=== PATIENT | female | born 1950 | race Caucasian/White ===

== ENCOUNTER → 2021-05-11 11:16 | Outpatient (CLI) | payer MEDICARE, OTHER, SELFPAY ==
[2021-05-11 11:53] LABS: Add Manual Diff / Slide Review NO; Basophils Absolute Auto 0 /uL (0-100); Basophils Percent Auto 0.7 % (0-2); Eosinophils Absolute Auto 400 /uL (0-450); Eosinophils Percent Auto 5.1 % (2-4); Hematocrit 43.3 % (36-46); Lymphocytes Absolute Auto 2400 /uL (1100-4500); Lymphocytes Percent Auto 33.9 % (25-40); Mean Corpuscular HGB Conc 34.6 % (30-36); Mean Corpuscular Volume 92.5 fL (80-100); Monocytes Absolute Auto 500 /uL (0-900); Monocytes Percent Auto 7.7 % (3-14); Neutrophils Absolute Auto 3800 /uL (1500-7000); Neutrophils Percent Auto 52.6 % (50-75); Platelet Count 127 X10^3/uL (150-400); Red Blood Cell Count 4.68 X10^6/uL (4.0-5.2); Red Cell Distribution Width 12.5 % (11.6-14.8); White Blood Cell Count 7.1 X10^3/uL (4.5-11.0)
[2021-05-11 12:16] LABS: Alanine Aminotransferase 37 IU/L (<35); Albumin 4.3 g/dL (3.5-5.0); Albumin Globulin Ratio 1.7 (1.0-2.8); Alkaline Phosphatase 57 U/L (38-126); Aspartate Aminotransferase 39 IU/L (14-36); BUN Creatinine Ratio 20.9 (6-22); Bilirubin Total 0.6 mg/dL (0.2-1.3); Blood Urea Nitrogen 19 mg/dL (7-17); Carbon Dioxide 27 mmol/L (22-32); Chloride 105 mmol/L (98-107); Estimated Glomerular Filt Rate > 60.0 mL/min (>60); Globulin 2.6 g/dL (1.7-4.1); Glucose 98 mg/dL (80-110); HEMOLYSIS < 15 (0-50); Potassium 4.4 mmol/L (3.4-5.1); Sodium 139 mmol/L (137-145); Total Protein 6.9 g/dL (6.3-8.2)
== END ==
PROVIDERS: Referring Provider Registered Nurse; Visit Provider Registered Nurse
DX: J98.8 Other specified respiratory disorders (principal)
CPT/HCPCS: 36415; 80053; 85025

== ENCOUNTER → 2021-05-24 18:11 | Outpatient (CLI) | payer MEDICARE, OTHER, SELFPAY ==
--- NOTE | 2021-05-24 18:14 | DI.MRI.S_ITS ---
PROCEDURE: MR SHOULDER LT WO CON INDICATIONS: Tingling, pain right left shoulder TECHNIQUE: Noncontrast oblique coronal T2 fast spin echo with fat saturation, oblique sagittal T1 spin echo and T2 fast spin echo with fat saturation, axial T1 spin echo and T2 fast spin echo with fat saturation through the shoulder. COMPARISON: None. FINDINGS: Image quality: Excellent. Rotator cuff: There is mild tendinopathy of the supraspinatus and infraspinatus with mild superficial fraying in the distal supraspinatus at its insertion as well as minimal intrasubstance partial tearing along the bursal sided fibers of the supraspinatus distally. No high-grade or full-thickness rotator cuff tear. The subscapularis also demonstrates mild tendinopathy with minimal interstitial partial tearing distally at its insertion. Teres minor appears intact. Sagittal images demonstrate no fatty muscle atrophy. Bones and bursae: No bone marrow contusions or fractures. There is moderate acromioclavicular joint degeneration. The acromion demonstrates mild inferior spurring laterally, without an os acromiale. A small amount of subacromial/subdeltoid bursal fluid is present. There is mild glenohumeral joint degeneration. Capsule and soft tissues: There is mild degenerative tearing in the posterosuperior labrum. Mild intermediate signal and attenuation is demonstrated at the glenoid insertion of the anterior inferior glenohumeral ligament which may represent degeneration or sequelae of a mild sprain. The long head of the biceps tendon demonstrates normal location and morphology. IMPRESSION: 1. Mild tendinopathy of the distal supraspinatus with mild bursal sided and interstitial partial tearing as described. Mild tendinopathy in the distal subscapularis with mild interstitial partial tearing distally also demonstrated. No high-grade or full-thickness rotator cuff tear. 2. Moderate acromioclavicular joint degeneration and mild inferior spurring along the lateral acromion. A small amount of subacromial/subdeltoid bursal fluid is present. 3. Mild degenerative tearing in the posterosuperior labrum. Dictated by: Kameron Mahmood M.D. on 05/25/2021 at 13:58 Approved by: Kameron Mahmood M.D. on 05/25/2021 at 14:23
== END ==
PROVIDERS: PCP Registered Nurse; Referring Provider Registered Nurse; Visit Provider Registered Nurse
DX: M75.112 Incomplete rotator cuff tear or rupture of left shoulder, not specified as traumatic (principal); M19.012 Primary osteoarthritis, left shoulder; S43.432A Superior glenoid labrum lesion of left shoulder, initial encounter; R20.2 Paresthesia of skin; R20.0 Anesthesia of skin
CPT/HCPCS: 73221

== ENCOUNTER → 2021-07-27 15:11 | Outpatient (ROUT) | payer MEDICARE, OTHER, SELFPAY ==
[2021-07-27 15:59] LABS: COVID19 -Nasal RAPID Negative (Negative)
== END ==
PROVIDERS: PCP Registered Nurse; Visit Provider Physician Assistant
DX: Z20.822 Contact with and (suspected) exposure to COVID-19 (principal)
CPT/HCPCS: 87635

== ENCOUNTER → 2021-08-03 09:35 | Outpatient (CLI) | payer MEDICARE, OTHER, SELFPAY ==
[2021-08-03 11:01] LABS: Add Manual Diff / Slide Review NO; Basophils Absolute Auto 100 /uL (0-100); Basophils Percent Auto 0.7 % (0-2); Eosinophils Absolute Auto 400 /uL (0-450); Eosinophils Percent Auto 4.8 % (2-4); Hematocrit 44.9 % (36-46); Hemoglobin 15.2 g/dL (12.0-16.0); Lymphocytes Absolute Auto 3000 /uL (1100-4500); Lymphocytes Percent Auto 37.9 % (25-40); Mean Corpuscular HGB Conc 33.7 % (30-36); Mean Corpuscular Hemoglobin 31.3 PG (26-34); Mean Corpuscular Volume 92.9 fL (80-100); Monocytes Absolute Auto 600 /uL (0-900); Monocytes Percent Auto 7.7 % (3-14); Neutrophils Absolute Auto 3900 /uL (1500-7000); Neutrophils Percent Auto 48.9 % (50-75); Platelet Count 175 X10^3/uL (150-400); Red Blood Cell Count 4.84 X10^6/uL (4.0-5.2); Red Cell Distribution Width 12.9 % (11.6-14.8)
[2021-08-03 12:13] LABS: Alanine Aminotransferase 36 IU/L (<35); Albumin 4.2 g/dL (3.5-5.0); Albumin Globulin Ratio 1.7 (1.0-2.8); Alkaline Phosphatase 54 U/L (38-126); Aspartate Aminotransferase 34 IU/L (14-36); BUN Creatinine Ratio 23.7 (6-22); Bilirubin Total 0.7 mg/dL (0.2-1.3); Blood Urea Nitrogen 23 mg/dL (7-17); Calcium 9.8 mg/dL (8.4-10.2); Carbon Dioxide 26 mmol/L (22-32); Chloride 102 mmol/L (98-107); Estimated Glomerular Filt Rate 56.6 mL/min (>60); Globulin 2.5 g/dL (1.7-4.1); Glucose 115 mg/dL (80-110); HEMOLYSIS < 15 (0-50); Potassium 4.3 mmol/L (3.4-5.1); Sodium 138 mmol/L (137-145); Total Protein 6.7 g/dL (6.3-8.2)
[2021-08-03 12:33] LABS: TSH w/ Reflex to FT4 2.12 uIU/mL (0.47-4.68)
== END ==
PROVIDERS: PCP Physician Assistant; Referring Provider Physician Assistant; Visit Provider Physician Assistant
DX: E03.9 Hypothyroidism, unspecified (principal)
CPT/HCPCS: 36415; 80053; 84443; 85025

== ENCOUNTER → 2021-10-11 06:53 | Outpatient (CLI) | payer MEDICARE, OTHER, SELFPAY ==
[2021-10-11 10:34] LABS: Alanine Aminotransferase 36 IU/L (<35); Albumin 4.4 g/dL (3.5-5.0); Albumin Globulin Ratio 1.8 (1.0-2.8); Alkaline Phosphatase 47 U/L (38-126); Aspartate Aminotransferase 41 IU/L (14-36); BUN Creatinine Ratio 13.3 (6-22); Bilirubin Total 0.8 mg/dL (0.2-1.3); Blood Urea Nitrogen 12 mg/dL (7-17); Calcium 9.8 mg/dL (8.4-10.2); Carbon Dioxide 28 mmol/L (22-32); Chloride 105 mmol/L (98-107); Estimated Glomerular Filt Rate > 60.0 mL/min (>60); Globulin 2.4 g/dL (1.7-4.1); Glucose 107 mg/dL (80-110); HEMOLYSIS < 15 (0-50); Potassium 4.3 mmol/L (3.4-5.1); Sodium 140 mmol/L (137-145); Total Protein 6.8 g/dL (6.3-8.2)
[2021-10-12 09:00] LABS: HBsAg Screen Negative (Negative); Hepatitis A Antibody IgM Negative (Negative); Hepatitis B Core Antibody IgM Negative (Negative); Hepatitis C Antibody <0.1 s/co ratio (0.0-0.9)
== END ==
PROVIDERS: PCP Physician Assistant; Referring Provider Physician Assistant; Visit Provider Physician Assistant
DX: R94.5 Abnormal results of liver function studies (principal)
CPT/HCPCS: 36415; 80053; 80074

== ENCOUNTER 2023-08-24 11:05 | Day surgery (SDC) | payer MEDICARE, OTHER, SELFPAY ==
--- NOTE | 2023-08-24 | PATH_ITS ---
[facility] Accession Number: [id number] No. of containers..03 Tissue . 01 Material submitted: . PART A: colon - TRANSVERSE POLYP PART B: colon - DESCENDING POLYP PART C: sigmoid colon - SIGMOID POLYPS . 01 Diagnosis: A. Transverse Colon Polyp, Biopsy: Serrated polyp with focal crypt architectural features, consistent with sessile serrated adenoma. . B. Descending Colon Polyp, Biopsy: Tubular adenoma. . C. Sigmoid Colon Polyps, Biopsy: Traditional serrated adenoma. Tubular adenomas. MRV 08/30/2023 1540 Local . 01 Electronically signed: . Ynes Roca MD, Pathologist NPI- [id number] . 01 Gross description: . Part A: TRANSVERSE POLYP: Received in formalin is multiple fragment(s) of galvin, soft tissue measuring 3.0 x 1.0 x 0.3 cm in aggregate submitted entirely in 1 cassette(s) Part B: DESCENDING POLYP: Received in formalin is 1 fragment(s) of galvin, soft tissue measuring 0.6 x 0.3 x 0.2 cm submitted entirely in 1 cassette(s) Part C: SIGMOID POLYPS: Received in formalin is multiple fragment(s) of galvin, soft tissue measuring 2.0 x 1.0 x 0.3 cm in aggregate submitted entirely in 1 cassette(s) /AAY 08/25/2023 0627 Local . 01 Pathologist provided ICD-10: D12.3, D12.4, D12.5 . 01 CPT . 870774, 685495, [id number] Specimen Comment: A courtesy copy of this report has been sent to [phone] Performed at: 01 [facility] [address] [place] [address] [address] [facility], [place], [place] [id number] MD Kameron Rosa MD Phone: [phone]
[2023-08-24 11:24] VITALS: BP 124/85; PULSE 107; RESP 16; TEMP 36.6; BMI 32.1
[2023-08-24] MEDS: LACTATED RINGERS 1,000 ML 100 ML IV (11:24)
--- NOTE | 2023-08-24 11:27 | PM.PREOP ---
Pre-operative Note COVID-19 COVID-19 status: Not tested Interval Note History & Physical reviewed/Exam performed by Physician: Yes Changes to H&P: No ASA Class (for procedural sedation): II
--- NOTE | 2023-08-24 12:32 | PM.OP.COLON ---
Operative Date/Time/Diagnoses Date of procedure: 08/24/23 Time of procedure: 12:32 Pre-op diagnosis: Positive fit test Post-op diagnosis: same Procedure & Clinicians Study performed: Colonoscopy Same procedure as scheduled: Yes Surgeon: Marcelo Greenfield Procedure Notes Procedure in detail: Surgeon: Marcelo Greenfield MD Anesthesia: Carolyn Thomas DO Procedure: The patient was brought to the endoscopy suite, placed in left lateral decubitus position. The patient was connected to monitoring devices. A time-out was performed. Sedation was administered. Once the patient was adequately sedated, a digital rectal exam was performed and was normal. The scope was then inserted and advanced to the cecum where the appendiceal orifice was identified and photographed. The scope was then slowly withdrawn over greater than 6 minutes. The mucosa was thoroughly inspected. There was a 1 cm polyp in the transverse colon removed with a hot snare. An additional slice of tissue was taken from the base of the polypectomy site as well. There was a 7 mm polyp in the descending colon removed with a cold snare. There were 2 polyps in the sigmoid colon. One was about 6 mm and 1 was about 1 cm. Both were removed with a hot snare and sent together. The scope was retroflexed in the rectum. No other abnormalities were found. The scope was straightened and removed. The patient was awakened and brought to recovery. Scope withdrawal time: 19 minutes Sedation time: 23 minutes EBL: 3 mL Findings: 1 cm transverse colon polyp, 7 mm descending colon polyp, 6 mm sigmoid polyp and 1 cm sigmoid polyp Post-procedure Disposition: PACU
[2023-08-24 12:36] VITALS: BP 98/63; PULSE 65; RESP 17; TEMP 36.1; O2SAT 93
[2023-08-24 12:41] VITALS: BP 99/62; PULSE 66; RESP 13; O2SAT 97
[2023-08-24 12:46] VITALS: BP 108/72; PULSE 65; RESP 14; O2SAT 96
[2023-08-24 12:50] VITALS: BP 116/70; PULSE 57; RESP 17; O2SAT 100
[2023-08-24 12:57] VITALS: BP 126/73; PULSE 56; RESP 17; O2SAT 99
== END 2023-08-24 13:11 | disposition home or self-care (01) ==
PROVIDERS: PCP Student in an Organized Health Care Education/Training Program; Referring Provider Surgery; Visit Provider Surgery
PROC: 0DJD8ZZ Inspection of Lower Intestinal Tract, Via Natural or Artificial Opening Endoscopic (ICD-10-PCS; CPT 45378; principal; 2023-08-24 12:00)
DX: Z12.11 Encounter for screening for malignant neoplasm of colon (principal); R19.5 Other fecal abnormalities; D12.3 Benign neoplasm of transverse colon; D12.4 Benign neoplasm of descending colon; D12.5 Benign neoplasm of sigmoid colon
CPT/HCPCS: 45385; J2704